=== PATIENT | female | born 1955 | race Caucasian/White ===

== ENCOUNTER 2022-10-09 09:48 | Emergency (ER) | payer MEDICARE, BC ==
[2022-10-09 10:17] LABS: BASOPHILS ABSOLUTE AUTO 0.01 10^3/uL (0.00-0.10); BASOPHILS PERCENT AUTO 0.3 % (0.0-1.0); EOSINOPHILS ABSOLUTE AUTO 0.01 10^3/uL (0.10-0.30); EOSINOPHILS PERCENT AUTO 0.3 % (1.0-3.0); HEMATOCRIT 45.3 % (37.0-47.0); HEMOGLOBIN 14.7 g/dL (12.0-16.0); IMMATURE GRAN ABSOLUTE AUTO 0.03 10^3/uL (0.00-0.50); IMMATURE GRAN PERCENT AUTO 0.9 % (0.0-5.0); LYMPHOCYTES ABSOLUTE AUTO 0.32 10^3/uL (1.00-4.00); LYMPHOCYTES PERCENT AUTO 9.3 % (20.0-40.0); MEAN CORPUSCULAR HEMOGLOBIN 29.6 pg (27.0-31.0); MEAN CORPUSCULAR HGB CONC 32.5 g/dL (32.0-36.0); MEAN CORPUSCULAR VOLUME 91.1 fL (82.0-92.0); MEAN PLATELET VOLUME 11.2 fL (7.4-10.4); MONOCYTES ABSOLUTE AUTO 0.32 10^3/uL (0.10-0.80); MONOCYTES PERCENT AUTO 9.3 % (2.0-8.0); NEUTROPHILS ABSOLUTE AUTO 2.76 10^3/uL (2.50-7.00); NEUTROPHILS PERCENT AUTO 79.9 % (50.0-70.0); PLATELET COUNT,PLT 92 10^3/uL (150-400); RED BLOOD CELL COUNT 4.97 10^6/uL (3.80-5.50); RED CELL DISTRIBUTION WIDTH 13.6 % (11.5-14.5); WHITE BLOOD CELL COUNT,WBC 3.45 10^3/uL (5.00-10.00)
[2022-10-09 10:34] LABS: ALBUMIN 2.79 g/dL (3.40-5.00); ANION GAP 12.5 mmol/L (5-15); CALCIUM 8.6 mg/dL (8.7-10.3); CARBON DIOXIDE,CO2 27.5 mmol/L (21.0-32.0); CREATININE 0.52 mg/dL (0.51-1.17); EST CRCL DRUG DOSING (CG) 86.84 mL/min; PROTEIN TOTAL,TP 6.5 g/dL (6.4-8.2)
[2022-10-09 10:39] LABS: LACTIC ACID 1.1 mmol/L (0.4-2.0)
[2022-10-09 10:40] LABS: APPEARANCE,URINE SLIGHTLY CLOUDY (CLEAR); BILIRUBIN,URINE SMALL (NEGATIVE); COLOR,URINE DARK YELLOW (YELLOW); GLUCOSE,URINE NEGATIVE (NEGATIVE); KETONES,URINE NEGATIVE (NEGATIVE); LEUKOCYTE ESTERASE,URINE NEGATIVE (NEGATIVE); NITRITE,URINE NEGATIVE (NEGATIVE); OCCULT BLOOD,URINE NEGATIVE (NEGATIVE); PH,URINE 6.5 (5.0-9.0); PROTEIN,URINE 100 mg/dL (NEGATIVE)
[2022-10-09 10:54] LABS: BACTERIA,URINE OCCASIONAL /HPF (NONE TO FEW); EPITHELIAL CELLS,URINE FEW /LPF; RBC,URINE 0-5 /HPF (0-5); WBC,URINE 0-5 /HPF (0-5)
[2022-10-09 10:56] LABS: INFLUENZA A NAA NEGATIVE (NEGATIVE); INFLUENZA B NAA NEGATIVE (NEGATIVE)
[2022-10-09 11:01] LABS: CORONAVIRUS COVID-19 NAA NEGATIVE (NEGATIVE)
[2022-10-09 11:27] LABS: AMYLASE 30 U/L (25-125); LIPASE 74 U/L (73-393)
[2022-10-09] MEDS: Ketorolac 30 MG/ML SDV IVPUSH ONE (12:12)
[2022-10-09] MEDS: Sodium Chloride 0.9% 10 ML Syringe FLUSH PRN (12:15)
[2022-10-09] MEDS: Hydrochlorothiazide 25 MG Tab PO ONE (12:38)
== END 2022-10-09 13:30 | disposition home or self-care (01) ==
LOC: KA.ED 09:48
DX: D72.819 Decreased white blood cell count, unspecified (principal); D69.6 Thrombocytopenia, unspecified; R74.8 Abnormal levels of other serum enzymes; I10 Essential (primary) hypertension; E66.9 Obesity, unspecified; Z68.41 Body mass index [BMI] 40.0-44.9, adult; Z88.8 Allergy status to other drugs, medicaments and biological substances; Z91.048 Other nonmedicinal substance allergy status; Z20.822 Contact with and (suspected) exposure to COVID-19
CPT/HCPCS: 0240U; 36415; 71045; 80053; 81001; 82150; 83605; 83690; 83880; 84484; 85025; 96374; 99284; A9270; J1885; J3490